=== PATIENT | female | born 1970 | race Caucasian/White ===

== ENCOUNTER → 2018-11-03 | Outpatient (CLI) | payer BC ==
[2018-11-03 17:34] LABS: BASO % 0 % (0-3); EOS # 0.3 x10^3/uL (0.0-0.7); EOS % 3 % (0-3); HEMATOCRIT 39.1 % (36.0-47.0); HEMOGLOBIN 12.6 g/dL (12.0-15.5); LYMPH # 3.4 x10^3/uL (1.0-4.8); LYMPH % 35 % (24-48); MEAN CORPUSCULAR HEMOGLOBIN 26 pg (25-35); MEAN CORPUSCULAR HGB CONC 32 g/dL (31-37); MEAN CORPUSCULAR VOLUME 80 fL (79-100); MONO % 10 % (0-9); NEUT # 5.1 x10^3uL (1.8-7.7); NEUT % 52 % (31-73); PLATELET COUNT 323 x10^3/uL (140-400); RED BLOOD COUNT 4.88 x10^6/uL (3.50-5.40); RED CELL DISTRIBUTION WIDTH 14.9 % (11.5-14.5); WHITE BLOOD COUNT 9.8 x10^3/uL (4.0-11.0)
[2018-11-03 17:46] LABS: ALBUMIN/GLOBULIN RATIO 0.9 (1.0-1.7); CALCIUM 9.1 mg/dL (8.5-10.1); GFR 59.4; POTASSIUM 3.9 mmol/L (3.5-5.1); TOTAL BILIRUBIN 0.3 mg/dL (0.2-1.0); TOTAL PROTEIN 8.4 g/dL (6.4-8.2)
== END | disposition home or self-care (01) ==
LOC: LAB 17:14
PROVIDERS: ATTEND Family Medicine
DX: R10.31 Right lower quadrant pain (principal)
CPT/HCPCS: 36415; 80053; 82150; 83690; 85025

== ENCOUNTER → 2018-11-04 | Outpatient (CLI) | payer BC ==
[~2018-11-04] MED LIST: IOHEXOL 240 MG/ML 50ML VIAL. ONE; IOHEXOL 240 MG/ML 50ML VIAL. PO ONE; IOHEXOL 300 MG/ML 75 ML VIAL. IV ONE
--- NOTE | 2018-11-04 13:59 | RAD ---
PQRS Compliance Statement: One or more of the following individualized dose reduction techniques were utilized for this examination: 1. Automated exposure control 2. Adjustment of the mA and/or kV according to patient size 3. Use of iterative reconstruction technique CT ABD PELV W/ORAL IV CONTRAST Clinical Indication: Right lower quadrant pain x5 days. Comparison: None. Technique: Helical CT imaging of the abdomen and pelvis is performed after 75 cc of Omnipaque 300 IV contrast. Oral contrast also given. Findings: There is mild atelectasis or scarring in the bilateral lung bases. Cardiac size is normal. Cholecystectomy. Liver, spleen, pancreas, adrenal glands, and abdominal aorta caliber are normal. Kidneys enhance symmetrically, no hydronephrosis. There is right extrarenal pelvis. The stomach is unremarkable. There is no dilated small bowel. The appendix is normal. There are a few subcentimeter pericecal lymph nodes. There is moderate colon stool volume. There is no colon wall thickening. No abdominal adenopathy or free fluid. The urinary bladder is normal. Anteverted uterus. There are 2 right adnexal cysts, larger measures 2.6 cm. There is a left adnexal cyst measuring up to 4.4 cm. There is no pelvic free fluid. No acute bone abnormality. IMPRESSION: 1. There are small bilateral adnexal cysts, probably physiologic. There is no pelvic free fluid. 2. Moderate colon stool volume suggests constipation. 3. The appendix is normal. Electronically signed by: Oliver Nye MD (11/04/2018 1:56 PM) [id number]
== END | disposition home or self-care (01) ==
LOC: CT 12:17
PROVIDERS: ATTEND Family Medicine
DX: N83.8 Other noninflammatory disorders of ovary, fallopian tube and broad ligament (principal); Z90.49 Acquired absence of other specified parts of digestive tract
CPT/HCPCS: 74177; Q9966; Q9967

== ENCOUNTER → 2018-11-26 | Outpatient (CLI) | payer BC ==
--- NOTE | 2018-11-26 15:43 | RAD ---
EXAM: Lumbar spine CT without contrast. HISTORY: Right back pain.. TECHNIQUE: Computed tomographic images of the lumbar spine were obtained without contrast. Multiplanar reformatting was performed. *One or more of the following individualized dose reduction techniques were utilized for this examination: 1. Automated exposure control. 2. Adjustment of the mA and/or kV according to patient size. 3. Use of iterative reconstruction technique. COMPARISON: Abdomen and pelvis CT dated 11/04/2018. FINDINGS: There is no listhesis. There is no scoliosis. The vertebral bodies are normal in height and the disc spaces are preserved. There is no fracture or suspicious lytic or sclerotic osseous lesion. There is a small calcification within the disc space at L3-L4. There is a 3.5 cm left ovarian cyst and suspected 2.0 cm right ovarian cyst. There is degenerative subchondral sclerosis and vacuum phenomenon involving the sacroiliac joints. At L1-L2 and L2-L3, there is no stenosis. At L3-L4, there is a minimal disc bulge. There is minimal right foraminal stenosis. At L4-L5, there is a minimal disc bulge. There is no stenosis. At L5-S1, there is a minimal disc bulge and slight along the posterior annulus. There is no stenosis. IMPRESSION: 1. Minimal degenerative change involving the lumbar spine. There is minimal right foraminal stenosis at L3-L4. 2. 3.5 cm left and 2.0 cm right ovarian cysts. Electronically signed by: Merari Christianson MD (11/26/2018 3:40 PM) [facility]
== END | disposition home or self-care (01) ==
LOC: CT 12:45
PROVIDERS: ATTEND Family Medicine
DX: M51.27 Other intervertebral disc displacement, lumbosacral region (principal); M48.061 Spinal stenosis, lumbar region without neurogenic claudication; M47.816 Spondylosis without myelopathy or radiculopathy, lumbar region; N83.291 Other ovarian cyst, right side
CPT/HCPCS: 72131

== ENCOUNTER 2019-01-15 16:33 | Observation (INO) | payer BC ==
[~2019-01-15] VITALS: Ht 170.2 cm; Wt 92.2 kg
[2019-01-15] MEDS ORDERED: ASPIRIN 325 MG TABLET PO ONE (16:45)
[2019-01-15] MEDS ORDERED: IV NORMAL SALINE 1,000ML 1,000 ML IV ONE (16:45)
[2019-01-15] MEDS ORDERED: ONDANSETRON PF 4 MG/2 ML VIAL. ONE (17:01)
[2019-01-15] MEDS ORDERED: ONDANSETRON PF 4 MG/2 ML VIAL. IVP ONE (17:15)
--- NOTE | 2019-01-15 17:26 | PHYS DOC ---
Past History Past Medical History: COPD, High Cholesterol, Hyperthyroid Past Surgical History: , Tonsillectomy, Tubal ligation Smoking: Quit Greater Than 1 Year Alcohol Use: Rarely Drug Use: None Adult General Chief Complaint Chief Complaint: CHEST PAIN HPI HPI 48-year-old female presents with report of chest discomfort substernally with some radiation to left clavicle which is been ongoing all day today. Patient does report some associated dizziness with nausea. Denies known trauma. Denies pleuritic pain. Denies leg swelling or calf tenderness. Cardiac risk factors of former smoking, family history, and high cholesterol. Reports family history of DVT. Review of Systems Review of Systems Constitutional: Denies fever or chills Eyes: Denies redness or eye pain HENT: Denies nasal congestion or sore throat Respiratory: Denies cough or shortness of breath Cardiovascular: Reports chest pain; denies palpitations GI: Denies abdominal pain, nausea, or vomiting : Denies dysuria or hematuria Musculoskeletal: Denies back pain or joint pain Integument: Denies rash or skin lesions Neurologic: Denies headache, focal weakness or sensory changes; reports dizziness Complete systems were reviewed and found to be within normal limits, except as documented in this note. Current Medications Current Medications Current Medications Medications (Trade) Dose Ordered Sig/Marc Start Time Stop Time Status Last Admin Dose Admin Aspirin (Kt Aspirin) 325 mg 1X ONCE 01/15/19 16:45 01/15/19 16:46 DC 01/15/19 16:45 325 MG Ondansetron HCl (Zofran) 4 mg STK-MED ONCE 01/15/19 17:01 01/15/19 17:01 DC Sodium Chloride 1,000 ml @ 1,000 mls/hr 1X ONCE 01/15/19 16:45 01/15/19 17:44 01/15/19 16:45 1,000 MLS/HR Allergies Allergies Allergies Coded Allergies Type Severity Reaction Last Updated Verified No Known Drug Allergies 11/04/18 No Physical Exam Physical Exam Constitutional: Well developed, well nourished, no acute distress, non-toxic appearance HENT: Normocephalic, atraumatic, oropharynx moist Eyes: PERRL, EOMI, conjunctiva normal, no discharge, no horizontal nystagmus Neck: Normal range of motion, no tenderness, supple Cardiovascular: Heart rate normal, regular rhythm Lungs & Thorax: Bilateral breath sounds clear to auscultation, no wheezing, no tenderness on palpation of anterior chest wall Abdomen: Soft, no tenderness Skin: Warm, dry, no erythema, no rash Extremities: No tenderness, ROM intact, no edema Neurologic: Alert and oriented X 3, normal motor function, normal sensory function, no focal deficits noted Psychologic: Affect normal, judgement normal Current Patient Data Vital Signs Vital Signs Date Time Temp Pulse Resp B/P (MAP) Pulse Ox O2 Delivery O2 Flow Rate FiO2 01/15/19 16:50 97.9 88 16 98 Room Air EKG EKG @1644 NSR at 92bpm, NO ST elevation, QRS 78ms, QT/QTc 356/445ms Radiology/Procedures Radiology/Procedures PROCEDURE: CHEST PA & LATERAL CHEST PA LATERAL Technique: PA and lateral views of the chest were obtained. Clinical History: Chest pain and cough Comparison: None. Findings: The heart and pulmonary vasculature appear within normal limits. There is mild reticular opacities in the lower lungs left worse right. The pleural margins are clear. Impression: Mild interstitial infiltrates likely secondary to atypical pneumonia. Electronically signed by: Moisés Muñoz III, MD (01/15/2019 7:03 PM) [facility] Course & Med Decision Making Course & Med Decision Making Pertinent Labs and Imaging studies reviewed. (See chart for details) Patient with significant cardiac risk factors presents with report of chest pain with associated nausea and dizziness. EKG stable. Labs obtained and posted to chart. D-dimer within normal limits. Initial troponin within normal limits. Chest x-ray with report of possible interstitial infiltrates versus atelectasis. WBC within normal limits. Patient is afebrile. Doubt infectious etiology. HEART score 4. Patient requiring admission for further evaluation and treatment. Discussed with Dr. Elmore (PCP) who is in agreement with admission. Discussed findings and plan with patient and family, who acknowledge understanding and agreement. Dragon Disclaimer Dragon Disclaimer This electronic medical record was generated, in whole or in part, using a voice recognition dictation system. Departure Departure: Impression: Primary Impression: Chest pain Additional Impression: Dizziness Disposition: ADMITTED INPATIENT Admitting Physician: Anastasiya Elmore Condition: STABLE Referrals: ANASTASIYA ELMORE MD (PCP) HEART Score for Chest Pain PTs The HEART Score for CP Pts HEART Score for Chest Pain: HEART Score for Chest Pain Response (Comments) Value History Moderately Suspicious 1 ECG Normal 0 Age >45 - < 65 1 Risk Factors >3 Risk Factors or Hx CAD 2 Troponin < Normal Limit 0 Total 4 Risk Factors: Risk Factors: DM, Current or recent (<one month) smoker, HTN, HLP, family history of CAD, obesity. Risk Scores: Score 0 - 3: 2.5% MACE over next 6 weeks - Discharge Home Score 4 - 6: 20.3% MACE over next 6 weeks - Admit for Clinical Observation Score 7 - 10: 72.7% MACE over next 6 weeks - Early Invasive Strategies Problem Qualifiers Primary Impression: Chest pain Chest pain type: unspecified Qualified Codes: R07.9 - Chest pain, unspecified TAMMIE FARFAN DO Jan 15, 2019 17:26
[2019-01-15 17:36] LABS: BASO % 0 % (0-3); EOS # 0.3 x10^3/uL (0.0-0.7); EOS % 3 % (0-3); HEMATOCRIT 38.4 % (36.0-47.0); HEMOGLOBIN 12.3 g/dL (12.0-15.5); LYMPH # 2.6 x10^3/uL (1.0-4.8); LYMPH % 28 % (24-48); MEAN CORPUSCULAR HEMOGLOBIN 26 pg (25-35); MEAN CORPUSCULAR HGB CONC 32 g/dL (31-37); MEAN CORPUSCULAR VOLUME 81 fL (79-100); MONO % 10 % (0-9); NEUT # 5.4 x10^3uL (1.8-7.7); NEUT % 58 % (31-73); PLATELET COUNT 379 x10^3/uL (140-400); RED BLOOD COUNT 4.74 x10^6/uL (3.50-5.40); RED CELL DISTRIBUTION WIDTH 14.7 % (11.5-14.5); WHITE BLOOD COUNT 9.3 x10^3/uL (4.0-11.0)
[2019-01-15 18:09] LABS: ALBUMIN 3.8 g/dL (3.4-5.0); ALBUMIN/GLOBULIN RATIO 0.9 (1.0-1.7); ALK PHOS 104 U/L (46-116); ALT (SGPT) 30 U/L (14-59); ANION GAP 11 (6-14); AST (SGOT) 22 U/L (15-37); BLOOD UREA NITROGEN 7 mg/dL (7-20); BUN/CREATININE RATIO 7 (6-20); CALCIUM 8.5 mg/dL (8.5-10.1); CARBON DIOXIDE 26 mmol/L (21-32); CHLORIDE 102 mmol/L (98-107); GFR 59.4; GLUCOSE 93 mg/dL (70-99); LIPASE 114 U/L (73-393); POTASSIUM 3.9 mmol/L (3.5-5.1); SODIUM 139 mmol/L (136-145); TOTAL BILIRUBIN 0.3 mg/dL (0.2-1.0)
[2019-01-15 18:54] LABS: BACTERIA,URINE 0 /HPF (0-FEW); BILIRUBIN,URINE NEG (NEG); CLARITY,URINE CLEAR; COLOR,URINE STRAW; GLUCOSE,URINE NEG (NEG); NITRITE,URINE NEG (NEG); RBC,URINE 0 /HPF (0-2); SQUAMOUS EPITHELIAL CELL,UR OCC /LPF; UROBILINOGEN,URINE 1 mg/dL (0.2 mg/dL); WBC,URINE OCC /HPF (0-4)
[2019-01-15] MEDS ORDERED: ONDANSETRON PF 4 MG/2 ML VIAL. IV PRN (19:00)
--- NOTE | 2019-01-15 19:06 | RAD ---
CHEST PA LATERAL Technique: PA and lateral views of the chest were obtained. Clinical History: Chest pain and cough Comparison: None. Findings: The heart and pulmonary vasculature appear within normal limits. There is mild reticular opacities in the lower lungs left worse right. The pleural margins are clear. Impression: Mild interstitial infiltrates likely secondary to atypical pneumonia. Electronically signed by: Moisés Muñoz III, MD (01/15/2019 7:03 PM) [facility]
[2019-01-15 19:30] VITALS: BP 188/111
[2019-01-15 20:00] VITALS: BP 167/107
[2019-01-15] MEDS ORDERED: ATOR20TA58 PO (20:00)
[2019-01-15] MEDS ORDERED: LEVO137T3 PO (20:00)
[2019-01-15] MEDS ORDERED: FLUT1AER IH (20:00)
[2019-01-15] MEDS ORDERED: ALBU2.5V5 IH (20:00)
[2019-01-15] MEDS ORDERED: FLUTICASONE IH PRN (20:15)
[2019-01-15] MEDS ORDERED: ALBUTEROL SULFATE 2.5 MG/3 ML NEBU. IH PRN (20:15)
[2019-01-15] MEDS ORDERED: ZOLPIDEM 5 MG TABLET. PO PRN (20:15)
[2019-01-15] MEDS ORDERED: VILANTEROL IH PRN (20:15)
[2019-01-15] MEDS ORDERED: ALBUTEROL SULFATE 2.5 MG/3 ML NEBU. NEB PRN (20:30)
[2019-01-15] MEDS: METOPROLOL TART IMMED RELEASE 50 MG TABLET PO SCH (20:31)
[2019-01-15] MEDS: BUTALB/APAP/CAFEIN 50/325/40MG TABLET. PO PRN (20:32)
[2019-01-15] MEDS ORDERED: ATORVASTATIN CALCIUM 20 MG TABLET PO SCH (21:00)
[2019-01-15] MEDS ORDERED: AZITHROMYCIN 250 MG in IV NORMAL SALINE 250ML 250 ML IV SCH (21:00)
[2019-01-15 21:05] VITALS: BP 171/96
[2019-01-15 22:00] VITALS: BP 176/99
[2019-01-15 23:00] VITALS: BP 157/87
--- NOTE | 2019-01-15 23:04 | RAD ---
CT Head W/O Contrast: History: Blurred vision Comparison: none Axial images were obtained without contrast. The diaz and white matter appears normal and symmetrical for the patients age. There is no mass effect, extraaxial fluid collections or hydrocephalus. There is no gross bleed. There is no focal loss of diaz-white matter distinction to suggest acute ischemia, i.e. stroke. Impression: No acute findings. RS Compliance Statement: One or more of the following individualized dose reduction techniques were utilized for this examination: 1. Automated exposure control 2. Adjustment of the mA and/or kV according to patient size 3. Use of iterative reconstruction technique Electronically signed by: Moisés Muñoz III, MD (01/15/2019 11:01 PM) [facility]
[2019-01-16 00:01] VITALS: BP 132/74
--- NOTE | 2019-01-16 01:54 | EKG ---
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
[2019-01-16 02:00] VITALS: BP 111/47
[2019-01-16 04:00] VITALS: BP 112/60
[2019-01-16] MEDS ORDERED: LEVOTHYROXINE 137 MCG TABLET PO SCH (06:00)
[2019-01-16 06:20] VITALS: BP 127/85
[2019-01-16] MEDS: METOPROLOL TART IMMED RELEASE 50 MG TABLET PO SCH ×2 (08:49→11:14)
[2019-01-16] MEDS ORDERED: LACTOBACILLUS RHAMNOSUS GG 1 CAPSULE. PO SCH (09:00)
[2019-01-16] MEDS ORDERED: FLU VAX QS 2019-20 (36MOS+)/PF 0.5 ML SYRINGE. VAX IM ONE (09:00)
[2019-01-16] MEDS: BUDESONIDE 0.5 MG/2 ML NEBU NEB SCH ×2 (09:16→11:55)
[2019-01-16] MEDS: BUTALB/APAP/CAFEIN 50/325/40MG TABLET. PO PRN (10:54)
[2019-01-16 11:10] VITALS: BP 142/92
[2019-01-16 11:14] VITALS: BP 142/92
[2019-01-16] MEDS ORDERED: METO50TA6 PO (12:56)
[2019-01-16] MEDS ORDERED: BUTA1TAB23 PO (12:56)
[2019-01-16] MEDS ORDERED: ZOLP5TAB PO (12:56)
[2019-01-16] MEDS ORDERED: AZIT250T6 PO (12:56)
--- NOTE | 2019-01-16 14:16 | RAD ---
DOPPLER CAROTID BILAT History: Blurred vision Technique: Duplex sonography of the cervical portion of both carotid arteries was performed. Real-time grayscale, color flow Doppler, and Doppler spectral waveform analysis is performed. PQRS Compliance Statement - Stenosis calculations for CT, MR and conventional angiography are based upon measurement of the distal ICA diameter in accordance with the NASCET methodology. Stenosis calculations for carotid ultrasound studies are derived from validated velocity criteria which are known to correlate with the NASCET methodology. Findings: Right side: Peak systolic flow velocity of the CCA is 112 cm/sec. Peak systolic flow velocity of the ICA is 72 cm/sec. The ICA/CCA ratio is 0.64. Peak end diastolic flow velocity of the ICA is 24 cm/sec. The peak systolic velocity of the ECA is 99 cm/sec. No significant plaque formation is identified. Left side: Peak systolic flow velocity of the CCA is 107 cm/sec. Peak systolic flow velocity of the ICA is 77 cm/sec. The ICA/CCA ratio is 0.71. Peak end diastolic flow velocity of the ICA is 27 cm/sec. Peak systolic flow velocity of the ECA is 113 cm/sec. No significant plaque formation is identified. Vertebral arteries: Bilateral vertebral arteries demonstrate antegrade flow. IMPRESSION: 1. No hemodynamically significant internal carotid artery stenosis is identified. Electronically signed by: Phoenix Garcia DO (01/16/2019 2:13 PM) [facility]
--- NOTE | 2019-01-16 14:46 | PDOC2 ---
CONSULT Date of Admission DATE: 01/16/19 TIME: 14:46 Reason for Consult: Chest pain Referring Physician: Dr. Elmore Chief Complaint Chest pain Source: Chart review, Patient Problem List Problems Medical Problems: (1) Chest pain Status: Acute (2) Chest pain Status: Acute (3) Dizziness Status: Acute History of Present Illness 48 y/o female without any previous cardiac history presented with intermittent left sided CP that she described as sharp, 4/10 severity not related to exertion. She denied any orthopnea/PND, palpitations or syncope Past Medical History COPD HTN HLP Hypothyroidism Past Surgical History Tonsillectomy Tubal ligation Family History negative for CAD Social History Quit smoking several years ago, social intake of alcohol, denied any drug abuse Current Medications Current Medications Aspirin (Kt Aspirin) 325 mg 1X ONCE PO Last administered on 01/15/19at 16:45; Start 01/15/19 at 16:45; Stop 01/15/19 at 16:46; Status DC Sodium Chloride 1,000 ml @ 1,000 mls/hr 1X ONCE IV Last administered on 01/15/19at 16:45; Start 01/15/19 at 16:45; Stop 01/15/19 at 17:44; Status DC Ondansetron HCl (Zofran) 4 mg 1X ONCE IVP Last administered on 01/15/19at 17:02; Start 01/15/19 at 17:15; Stop 01/15/19 at 17:16; Status DC Ondansetron HCl (Zofran) 4 mg STK-MED ONCE .ROUTE ; Start 01/15/19 at 17:01; Stop 01/15/19 at 17:01; Status DC Ondansetron HCl (Zofran) 4 mg PRN Q4HRS PRN IV NAUSEA/VOMITING Last administered on 01/16/19at 08:43; Start 01/15/19 at 19:00; Stop 01/16/19 at 18:59 Fentanyl Citrate (Fentanyl 2ml Vial) 50 mcg PRN Q2HR PRN IV PAIN; Start 01/15/19 at 19:00; Stop 01/16/19 at 18:59 Acetaminophen/ Butalbital/ Caffeine (Fioricet) 1 tab PRN Q6HRS PRN PO MIGRAINE HEADACHE Last administered on 01/16/19at 10:54; Start 01/15/19 at 20:15 Zolpidem Tartrate (Ambien) 5 mg PRN QHS PRN PO INSOMNIA Last administered on 01/16/19at 00:06; Start 01/15/19 at 20:15 Albuterol Sulfate (Ventolin) 2.5 mg QID PRN IH SHORTNESS OF BREATH; Start 01/15/19 at 20:15; Stop 01/15/19 at 20:28; Status DC Atorvastatin Calcium (Lipitor) 20 mg HS PO Last administered on 01/15/19at 20:31; Start 01/15/19 at 21:00 Levothyroxine Sodium (Synthroid) 137 mcg DAILY06 PO Last administered on at 06:02; Start 01/16/19 at 06:00 Non-Formulary Medication (Fluticasone/ Vilanterol (Breo Ellipta 100-25 Mcg Inh)) 1 inhaler PRN BID PRN IH Asthma; Start 01/15/19 at 20:15; Stop 01/15/19 at 20:25; Status DC Metoprolol Tartrate (Lopressor) 50 mg BID PO Last administered on 01/16/19at 11:14; Start 01/15/19 at 21:00 Azithromycin 250 mg/Sodium Chloride 250 ml @ 250 mls/hr Q24H IV Last administered on 01/15/19at 22:39; Start 01/15/19 at 21:00 Ceftriaxone Sodium 1 gm/ Sodium Chloride 50 ml @ 100 mls/hr Q24H IV Last administered on 01/15/19at 21:37; Start 01/15/19 at 20:30 Albuterol Sulfate (Ventolin) 2.5 mg PRN Q6HRS PRN NEB SHORTNESS OF BREATH Last administered on 01/15/19at 21:45; Start 01/15/19 at 20:30 Budesonide (Pulmicort) 0.5 mg RTBID NEB Last administered on 01/16/19at 11:55; Start 01/16/19 at 08:00 Influenza Virus Vaccine Quadrival (Afluria Quad 2019-20 (3yr Up) Syringe) 0.5 ml ONCE ONCE VAX IM Last administered on 01/16/19at 08:47; Start 01/16/19 at 09:00; Stop 01/16/19 at 09:01; Status DC Lactobacillus Rhamnosus (Culturelle) 1 cap BID PO Last administered on 01/16/19at 09:18; Start 01/16/19 at 09:00 Active Scripts Active Reported Breo Ellipta 100-25 Mcg Inh (Fluticasone/Vilanterol) 1 Each Aer.pow.ba 1 Inhaler IH PRN BID PRN LAST DOSE GIVEN: DATE: TIME: NEXT DOSE DUE: DATE: TIME: Albuterol Sulfate Neb Soln (Albuterol Sulfate) 2.5 Mg/3 Ml Vial.neb 3 Ml IH Q4-6HRS PRN LAST DOSE GIVEN: DATE: TIME: NEXT DOSE DUE: DATE: TIME: Atorvastatin Calcium 20 Mg Tablet 20 Mg PO HS LAST DOSE GIVEN: DATE: TIME: NEXT DOSE DUE: DATE: TIME: Levothyroxine Sodium 137 Mcg Tablet 137 Mcg PO DAILY06 LAST DOSE GIVEN: DATE: TIME: NEXT DOSE DUE: DATE: TIME: Allergies: Coded Allergies: amoxicillin (Verified Allergy, Mild, Nausea and Vomiting, 01/15/19) clavulanic acid (Verified Allergy, Mild, Nausea and Vomiting, 01/15/19) erythromycin base (Verified Allergy, Mild, Nausea, 01/15/19) propoxyphene (Verified Allergy, Unknown, 01/15/19) PSYCHOLOGICAL ROS: No: Hallucinations Eyes: No: Loss of vision HEENT: No: Epistaxis ENDOCRINE: No: Palpitations Respiratory: No: Hemoptysis, Shortness of breath Cardiovascular: yes: Chest Pain Gastrointestinal: No: Vomiting, Diarrhea Neurological: No: Seizures Skin: No: Rash General: Alert, Oriented X3 HEENT: Atraumatic, PERRLA Lungs: Clear to auscultation Heart: Regular rate Abdomen: Soft, No tenderness Extremities: No edema Psych/Mental Status: Mood NL VITALS Vital Signs Date Time Temp Pulse Resp B/P (MAP) Pulse Ox O2 Delivery O2 Flow Rate FiO2 01/16/19 11:57 Room Air 01/16/19 11:14 90 142/92 01/16/19 11:10 98.4 22 96 Labs Laboratory Tests Test 01/15/19 16:50 01/15/19 17:56 01/15/19 21:20 01/16/19 01:30 White Blood Count 9.3 x10^3/uL (4.0-11.0) Red Blood Count 4.74 x10^6/uL (3.50-5.40) Hemoglobin 12.3 g/dL (12.0-15.5) Hematocrit 38.4 % (36.0-47.0) Mean Corpuscular Volume 81 fL (79-100) Mean Corpuscular Hemoglobin 26 pg (25-35) Mean Corpuscular Hemoglobin Concent 32 g/dL (31-37) Red Cell Distribution Width 14.7 % (11.5-14.5) Platelet Count 379 x10^3/uL (140-400) Neutrophils (%) (Auto) 58 % (31-73) Lymphocytes (%) (Auto) 28 % (24-48) Monocytes (%) (Auto) 10 % (0-9) Eosinophils (%) (Auto) 3 % (0-3) Basophils (%) (Auto) 0 % (0-3) Neutrophils # (Auto) 5.4 x10^3uL (1.8-7.7) Lymphocytes # (Auto) 2.6 x10^3/uL (1.0-4.8) Monocytes # (Auto) 1.0 x10^3/uL (0.0-1.1) Eosinophils # (Auto) 0.3 x10^3/uL (0.0-0.7) Basophils # (Auto) 0.0 x10^3/uL (0.0-0.2) Prothrombin Time 10.4 SEC (9.4-11.4) Prothromb Time International Ratio 1.0 (0.9-1.1) Activated Partial Thromboplast Time 25 SEC (23-33) D-Dimer (Monik) 0.39 mg/L (0.00-0.50) Sodium Level 139 mmol/L (136-145) Potassium Level 3.9 mmol/L (3.5-5.1) Chloride Level 102 mmol/L (98-107) Carbon Dioxide Level 26 mmol/L (21-32) Anion Gap 11 (6-14) Blood Urea Nitrogen 7 mg/dL (7-20) Creatinine 1.0 mg/dL (0.6-1.0) Estimated GFR (Cockcroft-Gault) 59.4 BUN/Creatinine Ratio 7 (6-20) Glucose Level 93 mg/dL (70-99) Calcium Level 8.5 mg/dL (8.5-10.1) Magnesium Level 2.0 mg/dL (1.8-2.4) Total Bilirubin 0.3 mg/dL (0.2-1.0) Aspartate Amino Transf (AST/SGOT) 22 U/L (15-37) Alanine Aminotransferase (ALT/SGPT) 30 U/L (14-59) Alkaline Phosphatase 104 U/L (46-116) Creatine Kinase 67 U/L (26-192) Creatine Kinase MB (Mass) < 0.5 ng/mL (0.0-3.6) Creatine Kinase MB Relative Index 0.7 % (0-4) Troponin I Quantitative < 0.017 ng/mL (0-0.055) < 0.017 ng/mL (0-0.055) < 0.017 ng/mL (0-0.055) HT-Mmb-M-Type Natriuretic Peptide 37 pg/mL (0-124) Total Protein 8.0 g/dL (6.4-8.2) Albumin 3.8 g/dL (3.4-5.0) Albumin/Globulin Ratio 0.9 (1.0-1.7) Lipase 114 U/L (73-393) Urine Collection Type Unknown Urine Color Straw Urine Clarity Clear Urine pH 7.0 Urine Specific [place] 1.010 Urine Protein Neg (NEG-TRACE) Urine Glucose (UA) Neg mg/dL (NEG) Urine Ketones (Stick) Neg mg/dL (NEG) Urine Blood Trace (NEG) Urine Nitrite Neg (NEG) Urine Bilirubin Neg (NEG) Urine Urobilinogen Dipstick 1 mg/dL (0.2 mg/dL) Urine Leukocyte Esterase Neg (NEG) Urine RBC 0 /HPF (0-2) Urine WBC Occ /HPF (0-4) Urine Squamous Epithelial Cells Occ /LPF Urine Bacteria 0 /HPF (0-FEW) Erythrocyte Sedimentation Rate 32 (0-25) Lactic Acid Level 1.1 mmol/L (0.4-2.0) Procalcitonin ng/mL (0.00-0.10) Mycoplasma Serology (LAB) Negative (NEGATIVE) Assessment/Plan 1. CP with atypical features. IL ruled out. Check 2D echo to assess LVF and r/o WMA. Ischemic evaluation in the form of stress test could be considered as outpatient 2. HTN: controlled 3. HLP: statins 4. Hypothyroidism: on levothyroxine Thank you for your consultation KAMRAN KENDALL MD Jan 16, 2019 14:46
--- NOTE | 2019-01-16 23:59 | DS ---
DATE OF DISCHARGE: 01/16/2019 HOSPITAL COURSE: This 48-year-old female came in. She had severe headache with blurred vision. She was also having chest pain. Her blood pressure was markedly elevated to over 188/110. Pulse was in the upper 80s. She was afebrile with good oxygen saturation. The patient was admitted for rule out myocardial infarction protocol. D-dimer was negative. Chemistries did show triglycerides slightly elevated at 178, total cholesterol 198, LDL 116, and HDL of 47. Cardiac enzymes were negative. Lactic acid was unremarkable. The patient's blood sugar was also unremarkable. BUN and creatinine and all her labs were basically unremarkable. Mycoplasma was negative even though her chest x-ray did demonstrate the fact that the patient had atypical infiltrates consistent with pneumonia. Carotid Doppler was done because of her blurred vision. There was no significant blockage in the carotid arteries. The head CT was unremarkable and otherwise will continue to be monitored carefully. Her blood pressure came down to 110/47, pulse down to 69, and afebrile. She will be discharged home. IMPRESSION: Diplopia, hypertensive urgency, chest pain, nausea, pulmonary infiltrates consistent with atypical type of pneumonia. PLAN: The patient will be monitored as an outpatient, continue on low-sodium diet, decreased activity, and make further evaluation on her as indicated. ANASTASIYA KOENIG MD DR: PAULINE/jennifer JOB#: [id number] / [id number]
== END 2019-01-16 15:12 | disposition home or self-care (01) ==
LOC: ER 16:33 → ICU 18:45 → ER 19:25
PROVIDERS: ADMIT Family Medicine; ATTEND Family Medicine
DX: H53.2 Diplopia (principal); I16.0 Hypertensive urgency; E78.00 Pure hypercholesterolemia, unspecified; E03.9 Hypothyroidism, unspecified; I10 Essential (primary) hypertension; J18.9 Pneumonia, unspecified organism; Z82.49 Family history of ischemic heart disease and other diseases of the circulatory system; Z87.891 Personal history of nicotine dependence; Z98.891 History of uterine scar from previous surgery
CPT/HCPCS: 36415; 70450; 71046; 80053; 80061; 81001; 82553; 83605; 83690; 83735; 83880; 84145; 84484; 85025; 85379; 85610; 85651; 85730; 86738; 87040; 90471; 90686; 93005; 93880; 94640; 96361; 96365; 96367; 96375; 96376; 99284; G0378; J0456; J0696; J2405; J7050; J7613; J7626; G0379; J7030

== ENCOUNTER 2019-03-26 16:48 | Inpatient (IN) | payer BC ==
[~2019-03-26] VITALS: Ht 170.2 cm; Wt 95.3 kg
[~2019-03-26 16:48] MED LIST changes: -IOHEXOL 240 MG/ML 50ML VIAL. ONE; -IOHEXOL 240 MG/ML 50ML VIAL. PO ONE; -IOHEXOL 300 MG/ML 75 ML VIAL. IV ONE; -LEVO500T59 PO; -METR500T PO
[2019-03-26 17:10] VITALS: BP 140/92
[2019-03-26] MEDS ORDERED: BUTALB/APAP/CAFEIN 50/325/40MG TABLET. PO PRN (18:45)
[2019-03-26] MEDS ORDERED: ZOLPIDEM 5 MG TABLET. PO PRN (18:45)
[2019-03-26] MEDS ORDERED: FLUTICASONE IH PRN (18:45)
[2019-03-26] MEDS ORDERED: VILANTEROL IH PRN (18:45)
[2019-03-26] MEDS ORDERED: ALBUTEROL SULFATE 2.5 MG/3 ML NEBU. IH PRN (18:45)
[2019-03-26 19:34] VITALS: BP 117/70
[2019-03-26] MEDS ORDERED: ALBUTEROL SULFATE 2.5 MG/3 ML NEBU. NEB SCH (20:00)
[2019-03-26] MEDS ORDERED: BUDESONIDE 0.5 MG/2 ML NEBU NEB PRN (20:00)
[2019-03-26 20:50] LABS: ALBUMIN 3.6 g/dL (3.4-5.0); ALBUMIN/GLOBULIN RATIO 0.8 (1.0-1.7); C REACTIVE PROTEIN 9.2 mg/L (0-3.3); CALCIUM 8.6 mg/dL (8.5-10.1); CREATININE 0.9 mg/dL (0.6-1.0); GFR 67.1; TOTAL BILIRUBIN 0.3 mg/dL (0.2-1.0); TOTAL PROTEIN 8.1 g/dL (6.4-8.2)
[2019-03-26] MEDS: METOPROLOL TART IMMED RELEASE 50 MG TABLET PO SCH (21:10)
[2019-03-26] MEDS: KETOROLAC 30 MG/ML VIAL. IVP PRN (21:11)
[2019-03-26] MEDS: DOCUSATE SODIUM 100 MG CAPSULE PO SCH (21:11)
[2019-03-26] MEDS: ATORVASTATIN CALCIUM 20 MG TABLET PO SCH (21:11)
[2019-03-26] MEDS: IV NORMAL SALINE 1,000ML 1,000 ML IV SCH (21:12)
[2019-03-26 21:16] LABS: BASO # 0.1 x10^3/uL (0.0-0.2); BASO % 1 % (0-3); EOS # 0.2 x10^3/uL (0.0-0.7); EOS % 2 % (0-3); HEMOGLOBIN 11.3 g/dL (12.0-15.5); LYMPH # 3.2 x10^3/uL (1.0-4.8); LYMPH % 32 % (24-48); MEAN CORPUSCULAR HEMOGLOBIN 26 pg (25-35); MEAN CORPUSCULAR HGB CONC 32 g/dL (31-37); MEAN CORPUSCULAR VOLUME 80 fL (79-100); MONO # 1.1 x10^3/uL (0.0-1.1); MONO % 11 % (0-9); NEUT # 5.5 x10^3uL (1.8-7.7); NEUT % 54 % (31-73); PLATELET COUNT 307 x10^3/uL (140-400); RED BLOOD COUNT 4.39 x10^6/uL (3.50-5.40); RED CELL DISTRIBUTION WIDTH 15.2 % (11.5-14.5); WHITE BLOOD COUNT 10.1 x10^3/uL (4.0-11.0)
[2019-03-26] MEDS ORDERED: metroNIDAZOLE 500 MG TABLET PO SCH (22:00)
[2019-03-26 22:24] VITALS: BP 134/79
[2019-03-26 22:58] LABS: SEDIMENTATION RATE 35 (0-25)
[2019-03-27 03:29] VITALS: BP 128/85
[2019-03-27] MEDS: KETOROLAC 30 MG/ML VIAL. IVP PRN ×3 (03:36→20:41)
[2019-03-27] MEDS: LEVOTHYROXINE 137 MCG TABLET PO SCH (05:10)
[2019-03-27 05:46] VITALS: BP 108/69
[2019-03-27] MEDS: METOPROLOL TART IMMED RELEASE 50 MG TABLET PO SCH ×2 (09:15→20:40)
[2019-03-27] MEDS: DOCUSATE SODIUM 100 MG CAPSULE PO SCH ×2 (09:15→20:40)
[2019-03-27] MEDS: IV NORMAL SALINE 1,000ML 1,000 ML IV SCH (09:15)
[2019-03-27] MEDS: hydroCHLOROthiazide 12.5 MG CAPSULE PO SCH (10:44)
[2019-03-27 11:01] VITALS: BP 121/71
--- NOTE | 2019-03-27 12:03 | PN ---
DATE: SUBJECTIVE: The patient admitted with colitis of her ascending colon and constipation. She did have a bowel movement with some help with Dulcolax tablets. OBJECTIVE: VITAL SIGNS: Blood pressure 110/70, respiratory rate 20, pulse 60. GENERAL: Afebrile. The patient is alert and oriented. LUNGS: Diminished, but clear. CARDIOVASCULAR: Stable. ABDOMEN: Soft. There is definite tenderness in that left mid to lower quadrant area, although it is somewhat improved from where what was presently noted yesterday. The patient's CT scan did show surrounding stranding areas of colitis around that ascending colon. She is making good progress with IV antibiotic therapy and we will continue to monitor her accordingly. IMPRESSION: Ascending colitis, abdominal pain. PLAN: As above. ANASTASIYA KOENIG MD DR: PAULINE/jennifer JOB#: [id number] / [id number]
[2019-03-27] MEDS ORDERED: POTASSIUM CHLORIDE 20 MEQ TABLET.ER. PO ONE (12:15)
--- NOTE | 2019-03-27 14:39 | RAD ---
EXAM: Abdomen sonogram. HISTORY: Right lower quadrant pain. TECHNIQUE: Sonographic imaging of the abdomen was performed. COMPARISON: CT dated 03/26/2019. FINDINGS: There is mild hepatomegaly. No focal hepatic lesion is seen. The gallbladder is surgically absent. Common bile duct is normal in caliber. The right kidney is normal in size. There is a prominent right renal pelvis, likely an extra renal pelvis or due to a 2.6 cm parapelvic cyst. The pancreas is obscured due to bowel gas. The inferior vena cava is patent. There are cysts involving the left ovary, measuring 4.8 cm and 3.6 cm. There is normal blood flow within the surrounding ovarian parenchyma. The right ovary is not seen. IMPRESSION: 1. Left ovarian cyst measuring 4.8 cm and 3.6 cm. 2. Mild hepatomegaly. 3. Cholecystectomy. 4. Suspected right extrarenal pelvis or 2.6 cm parapelvic cyst. Electronically signed by: Merari Christianson MD (03/27/2019 2:36 PM) [id number]
[2019-03-27 15:10] VITALS: BP 132/71
[2019-03-27 19:00] VITALS: BP 121/78
[2019-03-27] MEDS: ATORVASTATIN CALCIUM 20 MG TABLET PO SCH (20:40)
[2019-03-27] MEDS: LACTOBACILLUS RHAMNOSUS GG 1 CAPSULE. PO SCH (20:40)
[2019-03-27 22:57] VITALS: BP 126/70
[2019-03-28] MEDS: LEVOTHYROXINE 137 MCG TABLET PO SCH (05:20)
[2019-03-28] MEDS: KETOROLAC 30 MG/ML VIAL. IVP PRN (05:29)
[2019-03-28 05:55] VITALS: BP 128/81
[2019-03-28] MEDS: DOCUSATE SODIUM 100 MG CAPSULE PO SCH (09:17)
[2019-03-28] MEDS: LACTOBACILLUS RHAMNOSUS GG 1 CAPSULE. PO SCH (09:17)
[2019-03-28] MEDS: hydroCHLOROthiazide 12.5 MG CAPSULE PO SCH (09:17)
[2019-03-28] MEDS: METOPROLOL TART IMMED RELEASE 50 MG TABLET PO SCH (09:17)
[2019-03-28] MEDS: IV NORMAL SALINE 1,000ML 1,000 ML IV SCH (09:28)
[2019-03-28 09:38] LABS: ALBUMIN 2.8 g/dL (3.4-5.0); ALBUMIN/GLOBULIN RATIO 0.7 (1.0-1.7); CALCIUM 7.8 mg/dL (8.5-10.1); CREATININE 0.9 mg/dL (0.6-1.0); GFR 67.1; POTASSIUM 3.8 mmol/L (3.5-5.1); TOTAL BILIRUBIN 0.4 mg/dL (0.2-1.0); TOTAL PROTEIN 6.7 g/dL (6.4-8.2)
[2019-03-28 09:43] LABS: BASO % 0 % (0-3); EOS # 0.1 x10^3/uL (0.0-0.7); EOS % 2 % (0-3); HEMATOCRIT 34.2 % (36.0-47.0); LYMPH # 1.6 x10^3/uL (1.0-4.8); LYMPH % 21 % (24-48); MEAN CORPUSCULAR HEMOGLOBIN 25 pg (25-35); MEAN CORPUSCULAR HGB CONC 32 g/dL (31-37); MEAN CORPUSCULAR VOLUME 78 fL (79-100); MONO # 0.4 x10^3/uL (0.0-1.1); MONO % 5 % (0-9); NEUT # 5.6 x10^3uL (1.8-7.7); NEUT % 72 % (31-73); PLATELET COUNT 294 x10^3/uL (140-400); RED BLOOD COUNT 4.36 x10^6/uL (3.50-5.40); WHITE BLOOD COUNT 7.8 x10^3/uL (4.0-11.0)
[2019-03-28] MEDS: FUROSEMIDE 20 MG/2 ML VIAL IVP ONE ×2 (09:45→11:09)
[2019-03-28] MEDS ORDERED: levoFLOXacin 750 MG TABLET PO SCH (10:00)
[2019-03-28 10:19] VITALS: BP 132/79
[2019-03-28] MEDS: POTASSIUM CHLORIDE 20 MEQ TABLET.ER. PO SCH ×2 (11:10→13:26)
[2019-03-28 12:23] LABS: BACTERIA,URINE MOD /HPF (0-FEW); BILIRUBIN,URINE NEG (NEG); CLARITY,URINE HAZY; COLOR,URINE YELLOW; GLUCOSE,URINE NEG (NEG); NITRITE,URINE NEG (NEG); UROBILINOGEN,URINE 0.2 mg/dL (0.2 mg/dL); WBC,URINE >40 /HPF (0-4)
[2019-03-28 12:24] LABS: SQUAMOUS EPITHELIAL CELL,UR MOD /LPF
[2019-03-28] MEDS ORDERED: metroNIDAZOLE 500 MG TABLET PO SCH (14:00)
[2019-03-28] MEDS ORDERED: METR500T PO (14:59)
[2019-03-28] MEDS ORDERED: LEVO500T59 PO (14:59)
[2019-03-28 15:20] VITALS: BP 109/71
--- NOTE | 2019-03-28 17:54 | DS ---
DATE OF DISCHARGE: HOSPITAL COURSE: A 48-year-old female came in with severe right flank pain consistent with her colitis that was seen on a CAT scan that demonstrated stranding in that area of the abdominal area. The patient received IV antibiotics, Flagyl and Levaquin, has made progress. She rates the pain now probably 4-5/10 down. PHYSICAL EXAMINATION: VITAL SIGNS: Blood pressure 110/70, respiratory rate 20, pulse 77. She is afebrile. GENERAL: The patient is alert and oriented. LUNGS: Clear. ABDOMEN: There is definite tenderness in the right side, but markedly improved from where she was to begin with. In any case, the patient will continue to be monitored. She will be discharged on Flagyl and Levaquin as an outpatient orally and make further evaluation. She will be on a low fiber diet and recommended a colonoscopy here in the next month or two as soon as she heals up. IMPRESSION: Severe abdominal pain, colitis of the ascending colon, constipation, anemia of chronic disease, [id number] protein malnutrition, looks like a urinary tract infection with the culture still pending. PLAN: She will continue on the Levaquin and Flagyl for now and make further evaluation on her as indicated. ANASTASIYA KOENIG MD DR: PAULINE/jennifer JOB#: [id number] / [id number]
== END 2019-03-28 13:45 | disposition home or self-care (01) | DRG 391 ==
LOC: 1 SOUTH 16:48
PROVIDERS: ADMIT Family Medicine; ATTEND Family Medicine
DX: K52.9 Noninfective gastroenteritis and colitis, unspecified (principal); E43 Unspecified severe protein-calorie malnutrition; N39.0 Urinary tract infection, site not specified; K59.00 Constipation, unspecified; D63.8 Anemia in other chronic diseases classified elsewhere; Z68.32 Body mass index [BMI] 32.0-32.9, adult
CPT/HCPCS: 36415; 76705; 80053; 81001; 82150; 83615; 83690; 85025; 85651; 86140; 86304; 87086; J1885; J1956; J3490; J7030

== ENCOUNTER → 2019-03-26 | Outpatient (CLI) | payer BC ==
[~2019-03-26] MED LIST changes: +ALBU2.5V5 IH; +ATOR20TA58 PO; +AZIT250T6 PO; +BUTA1TAB23 PO; +FLUT1AER IH; +LEVO137T3 PO; +LEVO500T59 PO; +METO50TA6 PO; +METR500T PO; +ZOLP5TAB PO
--- NOTE | 2019-03-26 15:32 | RAD ---
Examination: CT of the abdomen pelvis with oral and IV contrast HISTORY: History of right upper quadrant pain COMPARISON: 11/04/2018 TECHNIQUE: Axial CT images of the with oral and IV contrast. Coronal and sagittal reformats are performed Exposure: One or more of the following individualized dose reduction techniques were utilized for this examination: 1. Automated exposure control 2. Adjustment of the mA and/or kV according to patient size 3. Use of iterative reconstruction technique FINDINGS: The bibasilar lungs demonstrate minimal atelectasis. No evidence of free air identified in the abdomen. The liver, spleen, adrenals grossly appears unremarkable. Cholecystectomy clips identified. The stomach is mildly distended. The visualized pancreas grossly appears unremarkable the small bowel is nondilated. Feces and gas noted in the colon. The appendix is normal. There is mild thickened appearance of the wall of the ascending colon. There is mild fat stranding identified about the ascending colon. Few mesenteric lymph nodes identified in the right lower quadrant abdomen with the largest measuring 1 cm. There steatosis identified in the left adnexa measuring 4 cm and 3.6 cm could be a left ovarian cysts or cystic lesions. The bilateral kidneys enhance symmetrically. Tiny foci of air identified in the urinary bladder. No evidence of lytic bony destructive lesion. IMPRESSION: 1. Mild thickened appearance of the wall of the ascending colon with surrounding fat stranding likely focal colitis however underlying mucosal pathology or neoplasm is not completely excluded. 2. Left adnexal cysts or cystic lesions identified. Follow-up ultrasound pelvis could be considered. 3. Tiny foci of air identified in the urinary bladder could be due to recent instrumentation or cystitis. 4. Cholecystectomy changes. Electronically signed by: Bird Talbert MD (03/26/2019 3:29 PM) [id number]
== END | disposition home or self-care (01) ==
LOC: CT 13:28
PROVIDERS: ATTEND Nurse Practitioner Adult Health
DX: K91.86 Retained cholelithiasis following cholecystectomy (principal); N83.201 Unspecified ovarian cyst, right side; N83.202 Unspecified ovarian cyst, left side; Z90.49 Acquired absence of other specified parts of digestive tract
CPT/HCPCS: 74177; Q9967

== ENCOUNTER 2019-07-27 01:37 | Emergency (ER) | payer BC ==
[~2019-07-27] VITALS: Ht 170.2 cm; Wt 95.0 kg
[~2019-07-27 01:37] MED LIST changes: +LEVO500T59 PO; +METR500T PO
[2019-07-27] MEDS ORDERED: IPRATRPIUM/ALBUTEROL 0.5/2.5MG 3 ML NEBU. ONE (01:49)
[2019-07-27 01:50] VITALS: BP 143/98
--- NOTE | 2019-07-27 02:10 | PHYS DOC ---
Past History Past Medical History: Asthma, COPD, High Cholesterol, Hyperthyroid Past Surgical History: , Tonsillectomy, Tubal ligation Smoking: Quit Greater Than 1 Year Alcohol Use: Occasionally Drug Use: None General Adult EDM: Chief Complaint: ASTHMA HPI: HPI: Patient is a 48-year-old female who presented to ER today for evaluation of trouble breathing. Patient has a history of asthma, she woke up this morning having wheezing, she used her inhaler at home did not get any better so she came here for evaluation. Patient had a dry cough for few days as well. Patient denies any fever, no recent exposure to anybody who tested positive for COVID- 19. Review of Systems: Review of Systems: Constitutional: Denies fever or chills Eyes: Denies change in visual acuity HENT: Denies nasal congestion or sore throat Respiratory: Positive for cough and shortness of breath Cardiovascular: Denies chest pain or edema GI: Denies abdominal pain, nausea, vomiting, bloody stools or diarrhea : Denies dysuria Musculoskeletal: Denies back pain or joint pain Integument: Denies rash Neurologic: Denies headache, focal weakness or sensory changes Endocrine: Denies polyuria or polydipsia Lymphatic: Denies swollen glands Psychiatric: Denies depression or anxiety Heart Score: Risk Factors: Risk Factors: DM, Current or recent (<one month) smoker, HTN, HLP, family history of CAD, obesity. Risk Scores: Score 0 - 3: 2.5% MACE over next 6 weeks - Discharge Home Score 4 - 6: 20.3% MACE over next 6 weeks - Admit for Clinical Observation Score 7 - 10: 72.7% MACE over next 6 weeks - Early Invasive Strategies Current Medications: Current Meds: Current Medications Medications (Trade) Dose Ordered Sig/Marc Start Time Stop Time Status Last Admin Dose Admin Albuterol/ Ipratropium (Duoneb) 3 ml STK-MED ONCE 07/27/19 01:49 07/27/19 01:49 DC Prednisone (Prednisone) 60 mg 1X ONCE 07/27/19 02:15 07/27/19 02:16 07/27/19 02:00 60 MG Allergies: Allergies: Allergies Coded Allergies Type Severity Reaction Last Updated Verified amoxicillin Allergy Mild Nausea and Vomiting 01/15/19 Yes clavulanic acid Allergy Mild Nausea and Vomiting 01/15/19 Yes erythromycin base Allergy Mild Nausea 01/15/19 Yes propoxyphene Allergy Unknown 01/15/19 Yes Physical Exam: PE: Constitutional: Well developed, well nourished, no acute distress, non-toxic appearance. [] HENT: Normocephalic, atraumatic, bilateral external ears normal, oropharynx moist, no oral exudates, nose normal. [] Eyes: PERRLA, EOMI, conjunctiva normal, no discharge. [] Neck: Normal range of motion, no tenderness, supple, no stridor. [] Cardiovascular sinus tachycardia, regular rhythm, no murmur [] Lungs & Thorax: Bilateral breath sounds with expiratory wheezing to auscultation, IN NO ACUTE RESPIRATORY DISTRESS. Abdomen: Bowel sounds normal, soft, no tenderness, no masses, no pulsatile masses. [] Skin: Warm, dry, no erythema, no rash. [] Back: No tenderness, no CVA tenderness. [] Extremities: No tenderness, no cyanosis, no clubbing, ROM intact, no edema. [] Neurologic: Alert and oriented X 3, normal motor function, normal sensory function, no focal deficits noted. [] Psychologic: Affect normal, judgement normal, mood normal. [] Current Patient Data: Vital Signs: Vital Signs Date Time Temp Pulse Resp B/P (MAP) Pulse Ox O2 Delivery O2 Flow Rate FiO2 07/27/19 02:05 100 Room Air 07/27/19 01:50 97.5 107 26 143/98 (113) EKG: EKG: [] Radiology/Procedures: Radiology/Procedures: [][place] [address] IMAGING REPORT Signed PATIENT: IDA CRUZ ACCOUNT: [id number] : 1970 LOCATION: ER AGE: 48 SEX: F EXAM STATUS: PRE ER ORD. PHYSICIAN: ANASTASIYA BOLAÑOS DO REASON: cough, soa, H/O ASTHMA & SMOKING. PROCEDURE: CHEST AP ONLY Study: CR CHEST AP ONLY Indication: Cough. Shortness of air. Comparison: 01/15/2019 Findings: Within normal limits size of the cardiomediastinal silhouette. Unremarkable kane. No pneumothorax, confluent infiltrate or layering effusion. An infiltrate at the left lower lung on the comparison exam has resolved. Background lung markings are unchanged from the prior. Impression: Mildly increased interstitial markings throughout both lungs has not significant changed from the comparison. A left lower lung infiltrate on the comparison exam performed in 2019 has resolved. Electronically signed by: SACHA PEMBERTON MD (07/27/2019 2:31 AM) [id number] DICTATED AND SIGNED BY: SACHA PEMBERTON MD DATE: 07/27/19 0231 CC: ANASTASIYA KOENIG MD; ANASTASIYA BOLAÑOS DO ~ Course & Med Decision Making: Course & Med Decision Making Pertinent Labs and Imaging studies reviewed. (See chart for details) A discussion was held with the patient regarding their current condition of bronchitis. The possible complications of bronchitis, including the development of pneumonia, emphysema, and cardiovascular disease were discussed. Possible causes of the patient's bronchitis were also discussed including viral illness and bacterial infection. [The patient will be treated with antibiotics.][ ]In addition to the specific therapy above, the patient is advised to avoid smoking, drink plenty of fluids, rest, and take aspirin or Tylenol for fever. Furthermore, the patient is advised to use a humidifier or steam in the bathroom. Dragon Disclaimer: Dragon Disclaimer: This electronic medical record was generated, in whole or in part, using a voice recognition dictation system. Departure Departure: Impression: Primary Impression: Asthma attack Additional Impression: Bronchitis Disposition: HOME, SELF-CARE Condition: STABLE Referrals: ANASTASIYA KOENIG MD (PCP) FOLLOW UP WITH YOUR DOCTOR THIS WEEK Patient Instructions: Acute Bronchitis, Asthma, Acute Bronchospasm Scripts Albuterol Sulfate (PROAIR HFA INHALER) 8.5 Gm Hfa.aer.ad 2 PUFF IH PRN Q4-6HRS PRN for wheezing for 21 Days, #1 INHALER 0 Refills Prov: ANASTASIYA BOLAÑOS DO 07/27/19 Azithromycin (ZITHROMAX) 250 Mg Tablet 1 PKG PO UD for BRONCHITIS, #6 TAB Prov: ANASTASIYA BOLAÑOS DO 07/27/19 Prednisone (PREDNISONE) 20 Mg Tablet 1 TAB PO DAILY for ASTHMA, #10 TAB Prov: ANASTASIYA BOLAÑOS DO 07/27/19 ANASTASIYA BOLAÑOS DO Jul 27, 2019 02:10
[2019-07-27] MEDS ORDERED: predniSONE 20 MG TABLET PO ONE (02:15)
[2019-07-27] MEDS ORDERED: ALBU2.5V8 IH (02:33)
[2019-07-27] MEDS ORDERED: AZIT250T PO (02:33)
[2019-07-27] MEDS ORDERED: PRED20TA PO (02:33)
--- NOTE | 2019-07-27 02:34 | RAD ---
Study: CR CHEST AP ONLY Indication: Cough. Shortness of air. Comparison: 01/15/2019 Findings: Within normal limits size of the cardiomediastinal silhouette. Unremarkable kane. No pneumothorax, confluent infiltrate or layering effusion. An infiltrate at the left lower lung on the comparison exam has resolved. Background lung markings are unchanged from the prior. Impression: Mildly increased interstitial markings throughout both lungs has not significant changed from the comparison. A left lower lung infiltrate on the comparison exam performed in 2019 has resolved. Electronically signed by: SACHA PEMBERTON MD (07/27/2019 2:31 AM) [id number]
== END 2019-07-27 02:40 | disposition home or self-care (01) ==
LOC: ER 01:37
DX: J45.901 Unspecified asthma with (acute) exacerbation (principal); J44.9 Chronic obstructive pulmonary disease, unspecified; E78.00 Pure hypercholesterolemia, unspecified; E03.9 Hypothyroidism, unspecified; Z87.891 Personal history of nicotine dependence; Z88.1 Allergy status to other antibiotic agents; Z88.8 Allergy status to other drugs, medicaments and biological substances
CPT/HCPCS: 71045; 99283; J7512

== ENCOUNTER 2019-09-15 12:56 | Emergency (ER) | payer BC ==
[~2019-09-15] VITALS: Ht 170.2 cm; Wt 95.0 kg
[~2019-09-15 12:56] MED LIST changes: +ALBU2.5V8 IH; +AZIT250T PO; +PRED20TA PO
[2019-09-15 13:01] VITALS: BP 131/88
--- NOTE | 2019-09-15 14:11 | PHYS DOC ---
Past History Past Medical History: Asthma, COPD, High Cholesterol, Hyperthyroid Past Surgical History: , Tonsillectomy, Tubal ligation Smoking: Quit Greater Than 1 Year Alcohol Use: Rarely Drug Use: None General Adult EDM: Chief Complaint: OTHER COMPLAINTS HPI: HPI: 49-year-old female presents with feeling of globus. Patient had her esophagus dilated for the first time yesterday. Today, she was eating a lares and she feels like the skin has gotten stuck on the left side of her neck. She is tried gargling she has tried swallowing water and nothing makes it feeling go away. She is able to swallow water without difficulty she is able to breathe with no difficulty. She is handling her own secretions. 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 She has no other complaints at this time. Review of Systems: Review of Systems: Constitutional: Denies fever or chills Eyes: Denies change in visual acuity HENT: Denies nasal congestion or sore throat Respiratory: Denies cough or shortness of breath Cardiovascular: Denies chest pain or edema GI: Feeling of globus : Denies dysuria Musculoskeletal: Denies back pain or joint pain Integument: Denies rash Neurologic: Denies headache, focal weakness or sensory changes Endocrine: Denies polyuria or polydipsia Lymphatic: Denies swollen glands Psychiatric: Denies depression or anxiety Heart Score: Risk Factors: Risk Factors: DM, Current or recent (<one month) smoker, HTN, HLP, family history of CAD, obesity. Risk Scores: Score 0 - 3: 2.5% MACE over next 6 weeks - Discharge Home Score 4 - 6: 20.3% MACE over next 6 weeks - Admit for Clinical Observation Score 7 - 10: 72.7% MACE over next 6 weeks - Early Invasive Strategies Allergies: Allergies: Allergies Coded Allergies Type Severity Reaction Last Updated Verified amoxicillin Allergy Mild Nausea and Vomiting 01/15/19 Yes clavulanic acid Allergy Mild Nausea and Vomiting 01/15/19 Yes erythromycin base Allergy Mild Nausea 01/15/19 Yes propoxyphene Allergy Unknown 01/15/19 Yes Physical Exam: PE: Constitutional: Well developed, obese, well nourished, no acute distress, non- toxic appearance. [] HENT: Normocephalic, atraumatic, bilateral external ears normal, oropharynx moist, no oral exudates, nose normal. [] Eyes: PERRLA, EOMI, conjunctiva normal, no discharge. [] Neck: Normal range of motion, no tenderness, supple, no stridor. [] Cardiovascular:Heart rate regular rhythm, no murmur [] Lungs & Thorax: Bilateral breath sounds clear to auscultation [] Abdomen: Bowel sounds normal, soft, no tenderness, no masses, no pulsatile masses. [] Skin: Warm, dry, no erythema, no rash. [] Back: No tenderness, no CVA tenderness. [] Extremities: No tenderness, no cyanosis, no clubbing, ROM intact, no edema. [] Neurologic: Alert and oriented X 3, normal motor function, normal sensory function, no focal deficits noted. [] Psychologic: Affect normal, judgement normal, mood concerned. [] Current Patient Data: Vital Signs: Vital Signs Date Time Temp Pulse Resp B/P (MAP) Pulse Ox O2 Delivery O2 Flow Rate FiO2 09/15/19 13:01 98.0 94 18 131/88 (102) 99 Room Air EKG: EKG: [] Radiology/Procedures: Radiology/Procedures: [] Course & Med Decision Making: Course & Med Decision Making Pertinent Labs and Imaging studies reviewed. (See chart for details) The patient is having no difficulty swallowing. I think she just has the sensation of something being caught. I have advised that she wait another day and try to ignore it the best that she can. This feeling will likely self resolve. If her condition worsens or she has any other difficulties she will return to the emergency room. She is stable for discharge at this time. [] Dragon Disclaimer: Ama Disclaimer: This electronic medical record was generated, in whole or in part, using a voice recognition dictation system. Departure Departure: Impression: Primary Impression: Globus sensation Disposition: HOME/RESIDENCE PRIOR TO ADM Condition: STABLE Referrals: ANASTASIYA KOENIG MD (PCP) Patient Instructions: Globus Syndrome Justification of Admission: Justification of Admission: Justification of Admission Dx: N/A MADISON SOLORZANO DO Sep 15, 2019 14:11
== END 2019-09-15 14:16 | disposition home or self-care (01) ==
LOC: ER 12:56
DX: F45.8 Other somatoform disorders (principal); J44.9 Chronic obstructive pulmonary disease, unspecified; E78.00 Pure hypercholesterolemia, unspecified; E03.9 Hypothyroidism, unspecified; Z87.891 Personal history of nicotine dependence; Z88.1 Allergy status to other antibiotic agents; Z88.8 Allergy status to other drugs, medicaments and biological substances
CPT/HCPCS: 99281

== ENCOUNTER 2019-09-21 09:26 | Inpatient (IN) | payer BC ==
[~2019-09-21] VITALS: Ht 170.2 cm; Wt 88.6 kg
--- NOTE | 2019-09-21 09:54 | PHYS DOC ---
Past History Past Medical History: Asthma, COPD, High Cholesterol, Hyperthyroid Past Surgical History: , Tonsillectomy, Tubal ligation Smoking: Quit Greater Than 1 Year Alcohol Use: Rarely Drug Use: None General Adult EDM: Chief Complaint: COUGH HPI: HPI: 49-year-old female presents from her primary care physician's office with cough and increasing shortness of breath. Patient states that she has been feeling worse for the last several days. She has been off work but she still has had to have increasing albuterol. She is taking it every 4 hours at this time. It does not seem to be helping her keep up. Her physician wanted to direct admit her, but we are not doing direct admissions at this time so she has come to the emergency room. Patient has a history of bronchitis as well as pneumonia. No known COVID-19 exposures. Denies fever or chills. Review of Systems: Review of Systems: Constitutional: Denies fever or chills Eyes: Denies change in visual acuity HENT: Denies nasal congestion or sore throat Respiratory: Cough with shortness of breath Cardiovascular: Denies chest pain or edema GI: Denies abdominal pain, nausea, vomiting, bloody stools or diarrhea : Denies dysuria Musculoskeletal: Denies back pain or joint pain Integument: Denies rash Neurologic: Denies headache, focal weakness or sensory changes Endocrine: Denies polyuria or polydipsia Lymphatic: Denies swollen glands Psychiatric: Denies depression or anxiety Heart Score: Risk Factors: Risk Factors: DM, Current or recent (<one month) smoker, HTN, HLP, family history of CAD, obesity. Risk Scores: Score 0 - 3: 2.5% MACE over next 6 weeks - Discharge Home Score 4 - 6: 20.3% MACE over next 6 weeks - Admit for Clinical Observation Score 7 - 10: 72.7% MACE over next 6 weeks - Early Invasive Strategies Allergies: Allergies: Allergies Coded Allergies Type Severity Reaction Last Updated Verified amoxicillin Allergy Mild Nausea and Vomiting 01/15/19 Yes clavulanic acid Allergy Mild Nausea and Vomiting 01/15/19 Yes erythromycin base Allergy Mild Nausea 01/15/19 Yes propoxyphene Allergy Unknown 01/15/19 Yes Physical Exam: PE: Constitutional: Well developed, well nourished, no acute distress, non-toxic alli earance. [] HENT: Normocephalic, atraumatic, bilateral external ears normal, oropharynx moist, no oral exudates, nose normal. [] Eyes: PERRLA, EOMI, conjunctiva normal, no discharge. [] Neck: Normal range of motion, no tenderness, supple, no stridor. [] Cardiovascular:Heart rate regular rhythm, no murmur [] Lungs & Thorax: Expiratory wheezing at the right base [] Abdomen: Bowel sounds normal, soft, no tenderness, no masses, no pulsatile masses. [] Skin: Warm, dry, no erythema, no rash. [] Back: No tenderness, no CVA tenderness. [] Extremities: No tenderness, no cyanosis, no clubbing, ROM intact, no edema. [] Neurologic: Alert and oriented X 3, normal motor function, normal sensory function, no focal deficits noted. [] Psychologic: Affect normal, judgement normal, mood normal. [] EKG: EKG: [] Radiology/Procedures: Radiology/Procedures: [] Impressions: EXAM: CHEST PA LATERAL INDICATION: Reason: cough / Spl. Instructions: / History: . TECHNIQUE: PA and lateral views COMPARISON: 07/27/2019 FINDINGS: The heart size is normal. The great vessels appear unremarkable. There is no hilar or mediastinal mass. The lungs are clear. There is no pleural effusion or pneumothorax. There are no significant osseous abnormalities. IMPRESSION: No active cardiopulmonary disease. Electronically signed by: Gorge Samuel MD (09/21/2019 10:02 AM) [id number] DICTATED AND SIGNED BY: GORGE SAMUEL MD DATE: 09/21/19 1002 CC: MADISON SOLORZANO DO; ANASTASIYA KOENIG MD ~ Course & Med Decision Making: Course & Med Decision Making Pertinent Labs and Imaging studies reviewed. (See chart for details) Patient does appear to be having an asthma exacerbation. Her chest x-ray is negative for pneumonia. Her primary physician would like her admitted. I will admit her to the hospital. Dr. Andres has accepted her for admission. [] Dragon Disclaimer: Dragleonard Disclaimer: This electronic medical record was generated, in whole or in part, using a voice recognition dictation system. Departure Departure: Impression: Primary Impression: Asthma exacerbation Qualified Codes: J45.21 - Mild intermittent asthma with (acute) exacerbation Disposition: 09 ADMITTED INPATIENT Admitting Physician: Anastasiya Koenig Condition: STABLE Referrals: ANASTASIYA KOENIG MD (PCP) Justification of Admission: Justification of Admission: Justification of Admission Dx: Comment: Comments: asthma exacerbation MADISON SOLORZANO DO Sep 21, 2019 09:54
[2019-09-21] MEDS ORDERED: methylPREDNISolone SOD SUCC PF 125 MG/2 ML VIAL. IV ONE (10:00)
[2019-09-21] MEDS ORDERED: IV NORMAL SALINE 1,000ML 1,000 ML IV ONE (10:00)
--- NOTE | 2019-09-21 10:05 | RAD ---
EXAM: CHEST PA LATERAL INDICATION: Reason: cough / Spl. Instructions: / History: . TECHNIQUE: PA and lateral views COMPARISON: 07/27/2019 FINDINGS: The heart size is normal. The great vessels appear unremarkable. There is no hilar or mediastinal mass. The lungs are clear. There is no pleural effusion or pneumothorax. There are no significant osseous abnormalities. IMPRESSION: No active cardiopulmonary disease. Electronically signed by: Gopal Samuel MD (09/21/2019 10:02 AM) [id number]
[2019-09-21] MEDS ORDERED: methylPREDNISolone SOD SUCC PF 125 MG/2 ML VIAL. ONE (10:08)
[2019-09-21 10:34] LABS: BASO # 0.1 x10^3/uL (0.0-0.2); BASO % 1 % (0-3); EOS # 0.7 x10^3/uL (0.0-0.7); EOS % 6 % (0-3); HEMATOCRIT 40.8 % (36.0-47.0); HEMOGLOBIN 13.4 g/dL (12.0-15.5); LYMPH # 2.1 x10^3/uL (1.0-4.8); LYMPH % 19 % (24-48); MEAN CORPUSCULAR HEMOGLOBIN 27 pg (25-35); MEAN CORPUSCULAR HGB CONC 33 g/dL (31-37); MEAN CORPUSCULAR VOLUME 81 fL (79-100); MONO # 0.8 x10^3/uL (0.0-1.1); MONO % 7 % (0-9); NEUT # 7.6 x10^3uL (1.8-7.7); NEUT % 68 % (31-73); PLATELET COUNT 280 x10^3/uL (140-400); RED BLOOD COUNT 5.03 x10^6/uL (3.50-5.40); WHITE BLOOD COUNT 11.3 x10^3/uL (4.0-11.0)
[2019-09-21 10:48] LABS: CALCIUM 9.2 mg/dL (8.5-10.1); CREATININE 1.1 mg/dL (0.6-1.0); POTASSIUM 3.8 mmol/L (3.5-5.1)
[2019-09-21 10:54] LABS: ALBUMIN 3.5 g/dL (3.4-5.0); ALBUMIN/GLOBULIN RATIO 0.8 (1.0-1.7); TOTAL BILIRUBIN 0.5 mg/dL (0.2-1.0); TOTAL PROTEIN 7.9 g/dL (6.4-8.2)
[2019-09-21] MEDS ORDERED: IPRATRPIUM/ALBUTEROL 0.5/2.5MG 3 ML NEBU. NEB SCH (12:00)
[2019-09-21] MEDS ORDERED: FLUTICASONE IH PRN (12:00)
[2019-09-21] MEDS ORDERED: ALBUTEROL SULFATE 2.5 MG/3 ML NEBU. IH PRN ×2 (12:00)
[2019-09-21] MEDS ORDERED: VILANTEROL IH PRN (12:00)
[2019-09-21] MEDS: AZITHROMYCIN 250 MG TABLET. PO SCH (12:00)
[2019-09-21] MEDS ORDERED: ZOLPIDEM 5 MG TABLET. PO PRN ×2 (12:00→18:30)
[2019-09-21] MEDS ORDERED: ONDANSETRON PF 4 MG/2 ML VIAL. IVP PRN (12:00)
[2019-09-21] MEDS ORDERED: BUTALB/APAP/CAFEIN 50/325/40MG TABLET. PO PRN (12:00)
[2019-09-21 12:18] VITALS: BP 134/71
[2019-09-21] MEDS ORDERED: DILT120C2 PO (12:25)
[2019-09-21] MEDS ORDERED: metroNIDAZOLE 500 MG TABLET PO SCH (14:00)
[2019-09-21] MEDS ORDERED: BENZOCAINE/MENTHOL LOZNGE 18'S BOX. PO PRN (14:45)
[2019-09-21] MEDS: BENZONATATE 100 MG CAPSULE. PO SCH ×2 (15:12→21:08)
[2019-09-21 15:14] VITALS: BP 146/81
[2019-09-21] MEDS: IPRATRPIUM/ALBUTEROL 0.5/2.5MG 3 ML NEBU. NEB SCH ×2 (16:19→20:10)
[2019-09-21] MEDS ORDERED: ACETAMINOPHEN 500 MG TABLET PO PRN (18:30)
[2019-09-21] MEDS ORDERED: ONDANSETRON ODT 4 MG TAB.RAPDIS PO PRN (18:45)
[2019-09-21 19:20] VITALS: BP 144/76
[2019-09-21] MEDS: METOPROLOL TART IMMED RELEASE 50 MG TABLET PO SCH (21:08)
[2019-09-21] MEDS: ATORVASTATIN CALCIUM 20 MG TABLET PO SCH (21:08)
--- NOTE | 2019-09-21 23:11 | HP ---
ADMIT DATE: 09/21/2019 HISTORY OF PRESENT ILLNESS: This is a 49-year-old female who came in with increased shortness of breath for the last several days. The patient is becoming increasingly worse. Trying to use her albuterol inhalers. She has coughing but actually, she has asthma and bronchospasm. The patient is having to use accessory muscles as well as pursed lips to get her air. She has tried multiple breathing treatments and other devices at home to control the breathing problem. The patient became increasingly short of breath and as a result of this came in through the Emergency Room for further evaluation. She has no COVID-19 exposures and as noted has tried multiple other breathing treatments and other techniques to control her asthma. Apparently, she was weak and using accessory muscles as noted and was weakening and tired and as a result of this came in through the Emergency Room and was admitted for further evaluation of her acute exacerbation of asthma and bronchospasm. PAST MEDICAL HISTORY: History of asthma, bronchitis, celiac disease, cholecystectomy, tubal ligation, , endocrine disorders with hypothyroidism and anemia. IMMUNIZATIONS: Up-to-date. FAMILY HISTORY: Sister with mitral regurgitation. Brother with hypercholesterolemia as well as her mother. Mother had hypothyroidism as well as depression and COPD. Sister with asthma and coronary artery disease. ALLERGIES: AMOXICILLIN, AUGMENTIN, ERYTHROMYCIN AND DARVOCET. SOCIAL HISTORY: The patient used to be a smoker; however, has quit in the last year and is a full code. Denies alcohol or drug use. REVIEW OF SYSTEMS: Increased shortness of breath, having to use accessory muscles and pursed lips and fatigue with her breathing, but other than that, the patient denies chest pain, abdominal pain. Denies any nausea, vomiting, melena, hematochezia, hematemesis and neurologically stable except being worn out and tired from the coughing spasm. PHYSICAL EXAMINATION: GENERAL: This is a very pleasant white female, in moderate amount of distress. VITAL SIGNS: Blood pressure 123/83, respiratory rate 18, pulse as high as 107, temperature afebrile, oxygen saturation is good. The patient is using accessory muscles to breathe. HEENT: The patient's head was atraumatic, normocephalic. The patient is using pursed lips to breath. Mouth and throat, otherwise unremarkable. LUNGS: Diminished throughout with poor movement of air in all lobes. Some rhonchi noted in the bases. CARDIOVASCULAR: Tachycardic. ABDOMEN: Soft. EXTREMITIES: Without edema. NEUROLOGIC: Intact. LABORATORY DATA: Show white count of 11,000, hemoglobin and hematocrit stable. Electrolytes and chemistries were all within range. Blood sugar slightly elevated at 120. Creatinine slightly elevated at 1.1, GFR 53. The patient otherwise chest x-ray was unremarkable. IMPRESSION: Acute on top of chronic respiratory distress, acute bronchospasm, asthma, history of essential hypertension and sinus tachycardia. PLAN: The patient will be admitted and placed on steroids, aggressive pulmonary toilet. Make further evaluation on her as indicated. She was given some IV steroids in the Emergency Room and breathing treatments and we will continue to monitor accordingly. Make further evaluation on her as indicated. ANASTASIYA KOENIG MD DR: PAULINE/jennifer JOB#: [id number] / [id number]
[2019-09-21 23:23] VITALS: BP 120/75
[2019-09-22] MEDS: IPRATRPIUM/ALBUTEROL 0.5/2.5MG 3 ML NEBU. NEB SCH ×4 (05:02→20:43)
[2019-09-22 05:24] VITALS: BP 127/78
[2019-09-22] MEDS: LEVOTHYROXINE 137 MCG TABLET PO SCH (06:04)
[2019-09-22] MEDS: BENZONATATE 100 MG CAPSULE. PO SCH ×3 (08:37→21:27)
[2019-09-22] MEDS: METOPROLOL TART IMMED RELEASE 50 MG TABLET PO SCH ×2 (08:37→21:27)
[2019-09-22] MEDS: predniSONE 20 MG TABLET PO SCH (08:41)
[2019-09-22] MEDS: AZITHROMYCIN 250 MG TABLET. PO SCH (08:41)
[2019-09-22] MEDS ORDERED: levoFLOXacin 500 MG TABLET PO SCH (09:00)
[2019-09-22] MEDS ORDERED: predniSONE 20 MG TABLET PO SCH (09:00)
[2019-09-22] MEDS: methylPREDNISolone SOD SUCC PF 40 MG/ML VIAL. IV SCH ×3 (09:54→21:27)
[2019-09-22] MEDS ORDERED: CLON0.5T20 PO (10:01)
[2019-09-22] MEDS: clonazePAM 0.5 MG TABLET PO PRN ×2 (10:35→18:18)
[2019-09-22 10:40] VITALS: BP 117/76
--- NOTE | 2019-09-22 11:40 | PN ---
DATE: SUBJECTIVE: In with acute exacerbation of asthma. The patient had been going on for a week, failed outpatient therapy, was becoming increasingly weak and using accessory muscles as well as pursed lip breathing. The patient this morning actually is somewhat worse, more wheezing as noted and coughing, spastic spasms ____. The patient is still using pursed lip breathing and is having problems with her accessory muscles, difficult for her to get out of bed because of the shortness of breath, ____ by her bed since she is having trouble even walking 15 feet. OBJECTIVE: VITAL SIGNS: Blood pressure 120/80, respiratory rate 18, pulse 91-100, oxygen sat just sitting is 93%. LUNGS: Diminished. There are expiratory wheezes. CARDIOVASCULAR: Regular sinus rhythm. ABDOMEN: Soft, nontender. NEUROLOGIC: The patient was alert and oriented; however, as noted, acute exacerbation of COPD, acute respiratory distress, having to use accessory muscles and pursed lip to get good air in. PLAN: Continue on IV steroids, give her another dose of antibiotics and PCR is pending. ANASTASIYA KOENIG MD DR: PAULINE/jennifer JOB#: [id number] / [id number]
[2019-09-22 14:40] VITALS: BP 114/68
[2019-09-22 20:17] VITALS: BP 116/74
[2019-09-22] MEDS: ATORVASTATIN CALCIUM 20 MG TABLET PO SCH (21:27)
[2019-09-22 23:17] VITALS: BP 120/71
[2019-09-23] MEDS: clonazePAM 0.5 MG TABLET PO PRN (04:08)
[2019-09-23] MEDS: IPRATRPIUM/ALBUTEROL 0.5/2.5MG 3 ML NEBU. NEB SCH ×2 (05:27→11:26)
[2019-09-23] MEDS: LEVOTHYROXINE 137 MCG TABLET PO SCH (06:06)
[2019-09-23] MEDS: methylPREDNISolone SOD SUCC PF 40 MG/ML VIAL. IV SCH (06:06)
[2019-09-23 06:38] VITALS: BP 114/69
[2019-09-23] MEDS: METOPROLOL TART IMMED RELEASE 50 MG TABLET PO SCH (08:42)
[2019-09-23] MEDS: BENZONATATE 100 MG CAPSULE. PO SCH (08:42)
[2019-09-23] MEDS: AZITHROMYCIN 250 MG TABLET. PO SCH (08:42)
[2019-09-23] MEDS: predniSONE 20 MG TABLET PO SCH (08:48)
[2019-09-23 10:14] VITALS: BP 116/73
[2019-09-23] MEDS ORDERED: BENZ-8 PO (11:02)
[2019-09-23] MEDS ORDERED: PRED-220 PO (11:02)
[2019-09-23] MEDS ORDERED: IPRA3AMP29 NEB (11:02)
--- NOTE | 2019-09-23 12:16 | DS ---
DATE OF DISCHARGE: HOSPITAL COURSE: This is a 49-year-old female. The patient has been having problems for a week or so before admission with increased shortness of breath, wheezing, trying to take it on her own and taking care of it on her own at home. The patient was using accessory muscles when she came in through the office and through the Emergency Room, using pursed lips as well to breathe. She had severe coughing and bronchospasms consistent with her asthma and she became increasingly weakened by the situation at hand. The patient in turn was admitted to the hospital and placed on IV steroids and made relatively good progress with that. She is still having some coughing spasms, but nothing as bad as it was when she first came in. Also, chest x-ray was unremarkable. The rest of her labs are CBC, showed an elevated white count slightly of 11 and eosinophils were elevated at 8, possible allergies. The patient's creatinine was slightly elevated and GFR slightly decreased of course at 53, blood sugar 120. The rest of her labs were basically stable. IMPRESSION: Therefore, acute exacerbation of asthma, severe bronchospasm. The patient otherwise will be discharged home, tapering dose of prednisone, continue to monitor her accordingly and make further evaluation. She should be on a heart healthy diet, decreased activity, try to stay away from people who are smoking and other pollution and make further evaluation on her as an outpatient. ANASTASIYA KOENIG MD DR: PAULINE/jennifer JOB#: [id number] / [id number]
[2019-09-23] MEDS ORDERED: LACTOBACILLUS RHAMNOSUS GG 1 CAPSULE. PO SCH (21:00)
== END 2019-09-23 11:45 | disposition home or self-care (01) | DRG 202 ==
LOC: ER 09:26 → 1 SOUTH 10:50
PROVIDERS: ADMIT Family Medicine; ATTEND Family Medicine
DX: J45.21 Mild intermittent asthma with (acute) exacerbation (principal); J44.1 Chronic obstructive pulmonary disease with (acute) exacerbation; E03.9 Hypothyroidism, unspecified; E78.00 Pure hypercholesterolemia, unspecified; I10 Essential (primary) hypertension; J44.9 Chronic obstructive pulmonary disease, unspecified; Z81.8 Family history of other mental and behavioral disorders; Z82.49 Family history of ischemic heart disease and other diseases of the circulatory system; Z82.5 Family history of asthma and other chronic lower respiratory diseases; Z87.891 Personal history of nicotine dependence; Z98.891 History of uterine scar from previous surgery; E05.90 Thyrotoxicosis, unspecified without thyrotoxic crisis or storm; Z98.51 Tubal ligation status; Z88.1 Allergy status to other antibiotic agents; Z88.8 Allergy status to other drugs, medicaments and biological substances; R00.0 Tachycardia, unspecified; R06.03 Acute respiratory distress
CPT/HCPCS: 36415; 71046; 80053; 85025; 94640; 96361; 96374; J0456; J0696; J2920; J2930; J7512; 99285-25; J7030

== ENCOUNTER 2020-02-28 17:24 | Emergency (ER) | payer BC ==
[~2020-02-28] VITALS: Ht 170.2 cm; Wt 78.3 kg
[~2020-02-28 17:24] MED LIST changes: +BENZ-8 PO; +CLON0.5T20 PO; +DILT120C2 PO; +IPRA3AMP29 NEB; +PRED-220 PO
--- NOTE | 2020-02-28 17:43 | PHYS DOC ---
Past History Past Medical History: Asthma, Bronchitis, COPD, High Cholesterol, Hyperthyroid Past Surgical History: Cholecystectomy, , Tonsillectomy, Tubal ligation Smoking: Quit Greater Than 1 Year Alcohol Use: Rarely Drug Use: None General Adult EDM: Chief Complaint: FOREIGN BODY HPI: HPI: " I think I got a crab ekaterina stuck in my throat...or may be scratched it on the way down... It happened about a hour ago...." Patient is a 49 year old female who presents with above hx and complaints crab shell scratched in her throat. Pt. states it at level above thyroid cartilage. Patient has been able to swallow water and food. Patient was the one who prepared meal. Patient follows with Dr. Koenig. Review of Systems: Review of Systems: Constitutional: Denies fever or chills Eyes: Denies change in visual acuity HENT: Denies nasal congestion or sore throat . Complaints of feeling of foreign body or injury to her throat at level of above the thyroid cartilage Respiratory: Denies cough or shortness of breath Cardiovascular: Denies chest pain or edema GI: Denies abdominal pain, nausea, vomiting, bloody stools or diarrhea : Denies dysuria Musculoskeletal: Denies back pain or joint pain Integument: Denies rash Neurologic: Denies headache, focal weakness or sensory changes Endocrine: Denies polyuria or polydipsia Lymphatic: Denies swollen glands Psychiatric: Denies depression or anxiety Family History: Family History: Noncontributory Current Medications: Current Meds: See nursing for home meds Allergies: Allergies: Allergies Coded Allergies Type Severity Reaction Last Updated Verified amoxicillin Allergy Mild Nausea and Vomiting 09/21/19 Yes clavulanic acid Allergy Mild Nausea and Vomiting 09/21/19 Yes erythromycin base Allergy Mild Nausea 09/21/19 Yes propoxyphene Allergy Unknown 09/21/19 Yes Physical Exam: PE: Constitutional: Well developed, well nourished, no acute distress, non-toxic appearance. [] HENT: Normocephalic, atraumatic, bilateral external ears normal, oropharynx moist, no oral exudates, nose normal. Complains of posterior pharynx and upper throat irritation after swallowing a small piece of crab shell. Eyes: PERRLA, EOMI, conjunctiva normal, no discharge. [] Neck: Normal range of motion, no tenderness, supple, no stridor. [] Cardiovascular:Heart rate regular rhythm, no murmur [] Lungs & Thorax: Bilateral breath sounds are equal at apex on auscultation [] Abdomen: Bowel sounds normal, soft, no tenderness, no masses, no pulsatile masses. Old surgery scars Skin: Warm, dry, no erythema, no rash. [] Back: No tenderness, no CVA tenderness. [] Extremities: No tenderness, no cyanosis, no clubbing, ROM intact, no edema. [] Neurologic: Alert and oriented X 3, normal motor function, normal sensory function, no focal deficits noted. [] Psychologic: Affect anxious, judgement normal, mood normal. [] EKG: EKG: [] Radiology/Procedures: Radiology/Procedures: [][place] [address] IMAGING REPORT Signed PATIENT: IDA CRUZ ACCOUNT: [id number] : 1970 LOCATION: ER AGE: 49 SEX: F EXAM STATUS: REG ER ORD. PHYSICIAN: CARLITO WESTBROOK MD REASON: foreign body -shell PROCEDURE: NECK SOFT TISSUE AP and lateral soft tissue neck radiographs to include PA and lateral chest radiographs and two-view abdomen radiographs dated 02/28/2020. CLINICAL HISTORY: Foreign body ingestion. AP and lateral digital radiographs of the neck were obtained using soft tissue techniques. PA and lateral digital radiographs of chest were obtained. Supine and erect AP digital radiographs of the abdomen/pelvis were obtained. The epiglottis and aryepiglottic folds are within normal limits. No radiopaque foreign body is seen within the neck. No prevertebral soft tissue swelling is noted. The osseous structures are grossly intact. The cardiac and mediastinal silhouettes are within normal limits in size and configuration. No radiopaque foreign body is seen. No acute pulmonary infiltrate is noted. No pneumothorax or pleural effusion is seen. Degenerative changes are seen involving the thoracic spine. The abdominal bowel gas pattern is nonobstructive. No free air is seen. No radiopaque foreign body is noted. Moderate amount stool seen throughout the colon. No radiopaque calculus is seen. Surgical clips are seen within the right upper quadrant abdomen consistent with a cholecystectomy. Mild degenerative changes are seen involving lumbar spine. IMPRESSION: No radiopaque foreign body is seen. Electronically signed by: Bethel Dubois MD (02/28/2020 7:12 PM) [id number] DICTATED AND SIGNED BY: BETHEL DUBOIS MD DATE: 02/28/201911 CC: ANASTASIYA KOENIG MD; CARLITO WESTBROOK MD ~MTH0 0 Heart Score: Risk Factors: Risk Factors: DM, Current or recent (<one month) smoker, HTN, HLP, family history of CAD, obesity. Risk Scores: Score 0 - 3: 2.5% MACE over next 6 weeks - Discharge Home Score 4 - 6: 20.3% MACE over next 6 weeks - Admit for Clinical Observation Score 7 - 10: 72.7% MACE over next 6 weeks - Early Invasive Strategies Course & Med Decision Making: Course & Med Decision Making Pertinent Labs and Imaging studies reviewed. (See chart for details) Procedure note-direct visualization of upper pharynx and vocal cords. Use of a glide scope visualized upper pharynx and vocal cords. Did appear to have a small area of erythema above the epiglottis. Cords were functioning well. Patient warned this is a limited exam but if continued symptoms would need further follow-up tonight. With findings scratch or abrasion posterior pharynx at the level of she reports discomfort, suspect this is cause of her discomfort. Pt. warned this was limited exam. Impression: 1. Foreign body sensation or injury to her pharynx after swelling crab shell 2. Posterior pharyngeal scratch/abrasion [] Dragon Disclaimer: Dragon Disclaimer: This electronic medical record was generated, in whole or in part, using a voice recognition dictation system. Departure Departure: Referrals: ANASTASIYA KOENIG MD (PCP) Dragon Disclaimer This chart was dictated in whole or in part using Voice Recognition software in a busy, high-work load, and often noisy Emergency Department environment. It may contain unintended and wholly unrecognized errors or omissions. Dragon Disclaimer This chart was dictated in whole or in part using Voice Recognition software in a busy, high-work load, and often noisy Emergency Department environment. It may contain unintended and wholly unrecognized errors or omissions. CARLITO WESTBROOK MD Feb 28, 2020 17:43
[2020-02-28] MEDS ORDERED: LIDOCAINE 2% JELLY 6ML IN APPLICATOR. MM ONE (18:00)
[2020-02-28] MEDS ORDERED: LIDOCAINE 2% TOPICAL JELLY 5GM TUBE. TP ONE (18:15)
[2020-02-28] MEDS ORDERED: COCAINE 4% TOPICAL SOLUTION. TP ONE (18:30)
--- NOTE | 2020-02-28 19:15 | RAD ---
AP and lateral soft tissue neck radiographs to include PA and lateral chest radiographs and two-view abdomen radiographs dated 02/28/2020. CLINICAL HISTORY: Foreign body ingestion. AP and lateral digital radiographs of the neck were obtained using soft tissue techniques. PA and lateral digital radiographs of chest were obtained. Supine and erect AP digital radiographs of the abdomen/pelvis were obtained. The epiglottis and aryepiglottic folds are within normal limits. No radiopaque foreign body is seen within the neck. No prevertebral soft tissue swelling is noted. The osseous structures are grossly intact. The cardiac and mediastinal silhouettes are within normal limits in size and configuration. No radiopaque foreign body is seen. No acute pulmonary infiltrate is noted. No pneumothorax or pleural effusion is seen. Degenerative changes are seen involving the thoracic spine. The abdominal bowel gas pattern is nonobstructive. No free air is seen. No radiopaque foreign body is noted. Moderate amount stool seen throughout the colon. No radiopaque calculus is seen. Surgical clips are seen within the right upper quadrant abdomen consistent with a cholecystectomy. Mild degenerative changes are seen involving lumbar spine. IMPRESSION: No radiopaque foreign body is seen. Electronically signed by: Bethel Dubois MD (02/28/2020 7:12 PM) [id number]
[2020-02-28 19:26] VITALS: BP 143/85
== END 2020-02-28 19:35 | disposition home or self-care (01) ==
LOC: ER 17:24
DX: T17.298A Other foreign object in pharynx causing other injury, initial encounter (principal); S10.0XXA Contusion of throat, initial encounter; L53.9 Erythematous condition, unspecified; J44.9 Chronic obstructive pulmonary disease, unspecified; E78.00 Pure hypercholesterolemia, unspecified; E05.90 Thyrotoxicosis, unspecified without thyrotoxic crisis or storm; Z90.49 Acquired absence of other specified parts of digestive tract; Z98.890 Other specified postprocedural states; Z98.51 Tubal ligation status; Z87.891 Personal history of nicotine dependence; Z88.1 Allergy status to other antibiotic agents; Z88.8 Allergy status to other drugs, medicaments and biological substances; X58.XXXA Exposure to other specified factors, initial encounter; Y93.89 Activity, other specified; Y92.89 Other specified places as the place of occurrence of the external cause; Y99.8 Other external cause status
CPT/HCPCS: 70360; 71046; 74019; 99284